=== PATIENT | male | born 1930 | race Two or more races ===

== ENCOUNTER 2018-03-11 06:50 | Observation (INO) | payer MEDICARE, OTHER ==
[~2018-03-11] VITALS: Ht 167.6 cm; Wt 66.1 kg
[2018-03-11] VITALS (14 sets, daily range): BP systolic 128–140; BP diastolic 59–80
[2018-03-11] MEDS ORDERED: TAMSULOSIN HCL0.4 MG ORAL (06:54)
[2018-03-11] MEDS ORDERED: ARTIFICIAL TEAR15 ML BOTH EYES (06:54)
[2018-03-11] MEDS ORDERED: PROVASTATIN PO (06:54)
[2018-03-11] MEDS ORDERED: ECOTRIN81 MG PO (06:54)
[2018-03-11] MEDS ORDERED: JENTADUETO 2.51 EACH PO (06:54)
[2018-03-11] MEDS ORDERED: VOLTAREN GEL TOPIC (06:54)
[2018-03-11] MEDS ORDERED: Propofol 1,000mg/ 100ml btl IV ONE (07:00)
[2018-03-11] MEDS ORDERED: ceFAZolin sod 2 GM in NS 55 ML IVPB ONE (07:00)
[2018-03-11] MEDS ORDERED: LR 1000ml 1,000 ML IVLG SCH (07:07)
--- NOTE | 2018-03-11 07:08 | Pre-Procedure Note/Attestation ---
Pre-Procedure Note/Attestation Complete Prior to Procedure Planned Procedure: right Procedure Narrative: laparoscopic right inguinal hernia repair with mesh Indications for Procedure Pre-Operative Diagnosis: recurrent right inguinal hernia Attestation I attest that I discussed the nature of the procedure; its benefits; risks and complications; and alternatives (and the risks and benefits of such alternatives ), prior to the procedure, with the patient (or the patient's legal development representative). I attest that, if there was a reasonable possibility of needing a blood transfusion, the patient (or the patient's legal development representative) was given the [facility] standardized written summary, pursuant to the Neymar Kinsey Blood Safety Act ([place] Health and Safety Code # 1645, as amended). I attest that I re-evaluated the patient just prior to the surgery and that there has been no change in the patient's H&P, except as documented below: Dioni Paulson Mar 11, 2018 07:08
[2018-03-11] MEDS ORDERED: DiphenhydrAMINE 50mg/ml Inj IVP PRN ×2 (07:15→10:30)
[2018-03-11] MEDS ORDERED: Norco 5mg/325mg tab ORAL PRN (07:15)
[2018-03-11] MEDS ORDERED: Metoclopramide 10mg/2ml Inj IVP PRN (07:15)
[2018-03-11] MEDS ORDERED: Acetaminophen (Non formulary) 100 ML IV ONE (07:15)
[2018-03-11] MEDS ORDERED: oxyCODONE HCL/Acetaminophen 5/325mg ORAL PRN (07:15)
[2018-03-11] MEDS ORDERED: Hydromorphone 0.5mg/0.5ml inj IVP PRN (07:15)
[2018-03-11] MEDS ORDERED: fentaNYL 100 mcg/2 mL IV PRN (07:15)
[2018-03-11] MEDS ORDERED: LORazepam Inj 2mg/ml 1ml IV PRN (07:15)
[2018-03-11] MEDS ORDERED: HYDROcodone/Acetamin 7.5/325 tab ORAL PRN (07:15)
[2018-03-11] MEDS ORDERED: Ketorolac 30mg Inj IV PRN ×2 (07:15)
[2018-03-11] MEDS ORDERED: Atropine Inj 1mg/10ml Syr IV PRN (07:15)
[2018-03-11] MEDS ORDERED: Midazolam 2mg/2ml Inj IVP PRN (07:15)
[2018-03-11] MEDS ORDERED: Labetalol 5mg/ml 20ml vial IV PRN (07:15)
[2018-03-11] MEDS ORDERED: METFORMIN HCL500 M1 ORAL (07:21)
[2018-03-11] MEDS ORDERED: VITAMIN D250000 UNI1 ORAL (07:21)
[2018-03-11] MEDS ORDERED: Dexamethasone 4mg/ml vial ONE (07:28)
[2018-03-11] MEDS ORDERED: Sodium Chloride 10ml vial INJ ONE (07:28)
[2018-03-11] MEDS ORDERED: Lidocaine 1% MPF 10mg/ml 5ml ONE (07:28)
[2018-03-11] MEDS ORDERED: Midazolam 2mg/2ml Inj ONE (07:29)
[2018-03-11] MEDS ORDERED: Alfentanil 2ml Inj ONE (07:29)
[2018-03-11] MEDS ORDERED: NS Irrig 1000ml ONE (07:30)
[2018-03-11] MEDS ORDERED: Neostigmine 1mg/ml 10ml Inj ONE (07:30)
[2018-03-11] MEDS ORDERED: LR 1000ml ONE (07:30)
[2018-03-11] MEDS ORDERED: Sterile Water Irrig 1000ml IRRIG ONE (07:30)
[2018-03-11] MEDS ORDERED: Bacitracin 50000 Units Vial ONE (07:33)
[2018-03-11] MEDS ORDERED: NeoSporin Gu Irrig 1ml Amp IRRIG ONE (07:33)
[2018-03-11] MEDS ORDERED: EPINEPHrine 1mg/1ml Amp ONE (07:33)
[2018-03-11] MEDS ORDERED: Bupivacaine 0.5% Inj 30 ml vial INJ ONE (07:33)
[2018-03-11] MEDS ORDERED: PRAVASTATIN SOD10 M1 ORAL (07:34)
--- NOTE | 2018-03-11 08:15 | Anethesia Preoperative Eval ---
Anesthesia Pre-op PMH/ROS General Date of Evaluation: Mar 11, 2018 Time of Evaluation: 07:26 Anesthesiologist: Kristen ASA Score: ASA 3 Mallampati Score Class I : Soft palate, uvula, fauces, pillars visible Class II: Soft palate, uvula, fauces visible Class III: Soft palate, base of uvula visible Class IV: Only hard plate visible Mallampati Classification: Class II Surgeon: Lorene Diagnosis: R Inguinal Hernia Surgical Procedure: Laparoscopic R Inguinal Hernia Repair Anesthesia History: none Family History: no anesthesia problems Allergies: Coded Allergies: No Known Allergies (Verified , 03/11/18) Medications: see eMAR Past Medical History Cardiovascular: Reports: HTN, other - HL Gastrointestinal/Genitourinary: Reports: other - BPH Endocrine: Reports: DM PSxH Narrative: Open Inguinal Hernia Repair X2 Anesthesia Pre-op Phys. Exam Physician Exam Last Vital Signs Date Time Temp Pulse Resp B/P (MAP) Pulse Ox O2 Delivery O2 Flow Rate FiO2 03/11/18 07:27 97.7 68 20 137/70 (92) 98 97.7 03/11/18 07:15 Room Air Constitutional: NAD Neurologic: CN 2-12 intact Cardiovascular: RRR Respiratory: CTA Gastrointestinal: S/NT/ND Airway Exam Mallampati Score: Class II MO: full ROM: limited Teeth: missing, intact Anesthesia Pre-op A/P Risk Assessment & Plan Assessment: ASA 3 Plan: GA, BIS, GlideScope Status Change Before Surgery: No Pre-Antibiotics Dru Gram Ancef IV Given Within 1 Hr of Incision: Yes Time Given: 07:46 Per Peterson MD Mar 11, 2018 08:15
--- NOTE | 2018-03-11 08:16 | Immediate Post-Op Evaluation ---
Immediate Post-Op Evalulation Immediate Post-Op Evalulation Procedure: Laparoscopic R Inguinal Hernia Repair Date of Evaluation: Mar 11, 2018 Time of Evaluation: 10:23 IV Fluids: 500 LR Blood Products: 0 Estimated Blood Loss: 12 Urinary Output: 0 Blood Pressure Systolic: 131 Blood Pressure Diastolic: 64 Pulse Rate: 71 Respiratory Rate: 16 O2 Sat by Pulse Oximetry: 100 Temperature (Fahrenheit): 98.6 Pain Score (1-10): 2 Nausea: No Vomiting: No Complications 0 Patient Status: awake, reacts, patent, extubated, none Hydration Status: adequate Dru Gram Ancef IV Given Within 1 Hr of Incision: Yes Time Given: 07:46 Per Peterson MD Mar 11, 2018 08:16
[2018-03-11] MEDS ORDERED: Thrombin 5000 units spray kit TOPIC ONE (09:35)
[2018-03-11] MEDS ORDERED: Gelfoam Absorbable 1gm powder pkt TOPIC ONE (09:35)
--- NOTE | 2018-03-11 10:25 | Brief Operative Note ---
Immediate Post Operative Note Operative Note Pre-op Diagnosis: recurrent right inguinal hernia Procedure: laparoscopic right inguinal hernia repair with mesh Post-op Diagnosis: recurrent right direct inguinal hernia Surgeon: drew Anesthesiologist: julius Anesthesia: general Specimen: none Complications: none Condition: stable Fluids: see records Estimated Blood Loss: minimal Drains: none Implant(s) used?: Yes - Bard 3D mesh Dioni Paulson Mar 11, 2018 10:25
[2018-03-11] MEDS ORDERED: Sennosides 8.6mg ORAL PRN (10:30)
[2018-03-11] MEDS ORDERED: Milk of Magnesia 30ml Ud ORAL PRN (10:30)
[2018-03-11] MEDS ORDERED: Morphine Sulfate 2mg/ml Inj IVP PRN ×2 (12:00)
[2018-03-11] MEDS ORDERED: Morphine Sulfate 4mg/ml Inj (IV/IM USE ONLY) IVP PRN (12:00)
[2018-03-11] MEDS ORDERED: D5 1/2NS w/KCl 20mEq 1,000 ML IV SCH (13:00)
[2018-03-11] MEDS ORDERED: Artificial Tears 1.4% Op Soln BOTH EYES PRN (13:30)
--- NOTE | 2018-03-11 14:06 | General Progress Note ---
Assessment/Plan Status: stable Assessment/Plan 1. Right inguinal s/p RT inguinal hernia repair with mesh - doing well. advised to walk and DC planning tomorrow. good pain control. 2. DM II - cont home meds. 3. BPH - cont flomax 0.8 mg qhs. 4. HLD - Cont pravachol 10 mg qhs. Subjective Date patient seen: Mar 11, 2018 Time patient seen: 13:40 Constitutional: Reports: no symptoms HEENT: Reports: no symptoms Cardiovascular: Reports: no symptoms Respiratory: Reports: no symptoms Gastrointestinal/Abdominal: Reports: no symptoms Genitourinary: Reports: no symptoms Neurologic/Psychiatric: Reports: no symptoms Endocrine: Reports: no symptoms Hematologic/Lymphatic: Reports: no symptoms Allergies: Coded Allergies: No Known Allergies (Verified , 03/11/18) Subjective He is s/p lab hernia repair today. he is doing well. he had BM today. no sob or chest pain. no fever or chills. Objective Last 24 Hour Vital Signs Date Time Temp Pulse Resp B/P (MAP) Pulse Ox O2 Delivery O2 Flow Rate FiO2 03/11/18 13:15 Nasal Cannula 3.0 03/11/18 13:00 97.4 60 18 135/65 (88) 99 97.4 03/11/18 12:00 97.4 61 18 140/66 (90) 99 97.4 03/11/18 11:18 98.0 03/11/18 11:18 98.0 03/11/18 11:16 98 65 15 138/65 100 Nasal Cannula 3 98.0 03/11/18 11:05 63 14 134/70 100 Nasal Cannula 3 03/11/18 10:58 98.5 03/11/18 10:55 62 18 139/64 100 Nasal Cannula 3 03/11/18 10:52 98.5 03/11/18 10:48 65 16 131/66 99 Nasal Cannula 3 03/11/18 10:40 66 17 128/67 99 Nasal Cannula 3 03/11/18 10:30 68 20 134/64 99 Nasal Cannula 3 03/11/18 10:20 68 17 136/61 100 Simple Mask 6 03/11/18 10:15 69 16 133/59 100 Simple Mask 6 03/11/18 10:13 209.5 71 16 100 03/11/18 10:12 98.5 71 18 131/64 100 Simple Mask 6 98.5 03/11/18 07:27 97.7 68 20 137/70 (92) 98 97.7 03/11/18 07:15 Room Air Height (Feet): 5 Height (Inches): 6.00 Weight (Pounds): 148 General Appearance: no apparent distress, alert EENT: normal ENT inspection Neck: non-tender, normal alignment, supple Cardiovascular: normal peripheral pulses, normal rate, regular rhythm Respiratory/Chest: chest wall non-tender, lungs clear, normal breath sounds Abdomen: normal bowel sounds, non tender, soft Extremities: normal range of motion, non-tender Edema: no edema noted Arm (L), no edema noted Arm (R), no edema noted Leg (L), no edema noted Leg (R), no edema noted Pedal (L), no edema noted Pedal (R), no edema noted Generalized Neurologic: alert, oriented x 3, responsive Skin: warm/dry Lymphatic: normal anterior cervical (L), normal anterior cervical (R), normal posterior cervical (L), normal posterior cervical (R), normal submandibular (L) , normal submandibular (R), normal supraclavicular (L), normal supraclavicular ( R), normal axillary (L), normal axillary (R), normal inguinal (L), normal inguinal (R), normal other Kan Linda MD Mar 11, 2018 14:06
[2018-03-11] MEDS: ceFAZolin sod 2 GM in D5W 110 ML IV SCH ×2 (15:29→23:47)
[2018-03-11] MEDS: metFORMIN 500mg tab ORAL SCH (17:25)
[2018-03-11] MEDS: Docusate 100mg cap ORAL SCH (17:25)
--- NOTE | 2018-03-11 20:02 | Operative Note - Dictated ---
DATE OF OPERATION: 03/11/2018 PREOPERATIVE DIAGNOSIS: Recurrent right inguinal hernia. POSTOP DIAGNOSIS: Recurrent right direct inguinal hernia. OPERATION PERFORMED: Laparoscopic right inguinal hernia repair with mesh. SURGEON: Dioni Paulson M.D. MEDICAL LEADER: None. ANESTHESIOLOGIST: Per Peterson M.D. ANESTHESIA: General DEBURRER MACHINE. ESTIMATED BLOOD LOSS: Minimal. IV FLUIDS: Please see anesthesia records. COMPLICATIONS: None. SPECIMENS: None. IMPLANTS: Bard 3D mesh, right-sided, medium. COUNTS: Sponge and needle count correct x2. WOUND CLASSIFICATION: Class 1. INDICATIONS FOR PROCEDURE: This is an 87-year-old male, who was referred to me for evaluation of recurrent right inguinal hernia. The patient was seen by his primary care physician recently complaining of significant severe right groin pain, at which time, was identified in the PCP's office, to have an incarcerated inguinal hernia, which was fortunately reduced. The patient was then referred to surgery for evaluation at which time, the patient was seen by myself and noted to have a reducible right inguinal hernia with complaints of pain, discomfort, and occasional intermittent incarceration requiring reduction. The patient has had two prior right inguinal herniorrhaphies in the past, first one complicated by recurrence and second one complicated by recurrence and intermittent pain since operation. Given these above findings, repair was indicated and recommended. Discussion was held about method of repair and given two prior open surgeries with prosthetic mesh, a laparoscopic repair was recommended. Risks, benefits, and alternatives were discussed with the patient in detail. The patient expressed understanding and consented to surgery. Of note, since last the patient was seen in my office, he called complaining of worsening right groin pain and recent re-incarceration requiring reduction. Given this, the patient requested earliest possible repair time, which was scheduled for 03/11/2018. OPERATIVE NOTE: The patient was taken to the operating room and placed on the operating table in supine position with bilateral arms out. All bony prominences were well padded. Preoperative time-out was taken in identifying the patient, procedure, operative staff, and surgical staff. SCDs were placed. No Castillo catheter was inserted given the patient voided prior to entering the operating room. A 2 g Ancef IV were given one hour prior to cut time. General anesthesia was induced and the patient was intubated. The abdomen and bilateral groins were clipped, prepped, and draped in standard surgical fashion. A supraumbilical incision was made after local anesthetic was infiltrated in the proposed skin incision site. Skin incision was made with a fresh #11 scalpel. The subcutaneous tissue was dissected bluntly until the fascia was identified at the umbilical stalk. The fascia was grasped and elevated and the fascia was incised. Entry into the abdomen was obtained using the open Simba technique without complication. A 12 mm Simba trocar was inserted and the abdomen was insufflated to 12 to 15 mmHg. The patient tolerated the insufflation well. Laparoscope was inserted and the abdomen was inspected. No abnormalities were noted in the right upper quadrant. No abnormalities were noted in the left upper quadrant. There was a very small direct left inguinal hernia, which was asymptomatic and not present on examination with no prior history or complaints. There was a small remnant of a right direct inguinal hernia noted and a moderate-sized right indirect inguinal hernia, likely incisional noted with contents that were easily reduced. At this time, decision was made to proceed with right inguinal herniorrhaphy with mesh. The anterior superior iliac spine and the median umbilical ligament were identified and the remainder of the anatomy was noted. An incision was made in the peritoneal lining and a flap was created. Around the area of the prior hernia sac, there was some scar tissue, but safe dissection was performed until both lateral and medial flaps were created to pass. The medial dissection was carried down to Gurjit's ligament and the pubic tubercle exposing femoral direct and indirect spaces and laterally to about the level of the anterior superior iliac spine without going any further. The cord and cord structures were circumferentially dissected out and protected. At this time, adequate dissection was identified with reduction of the direct hernia sac, the reduction of the small indirect hernia sac, and exposure of the femoral space. At this time, a Bard 3D mesh, right-sided medium-sized mesh was inserted into the operative field and positioned appropriately. Good coverage of all hernia defect sites were noted. The mesh was tacked using a AbsorbaTack at the Gurjit's ligament and medial to the epigastric vessels. A Tisseel fibrin glue sealant was placed and the peritoneal flap was reapproximated. A few AbsorbaTack's were placed to reapproximate the peritoneal lining. Once this was complete, a satisfactory repair was identified without complication. At this time, the secondary trocars were removed under direct visualization followed by removal of the umbilical trocar and desufflation of the abdomen. The umbilical trocar site fascia was closed using a looped [id number] Vicryl suture. The remaining skin incisions were closed using 4-0 Monocryl subcuticular interrupted sutures. Dermabond and Steri-Strips were placed. At the end of the procedure, both testicles were noted to be within the scrotal sac without complication. The patient tolerated the procedure well, was extubated, and taken to the postanesthetic care unit in stable condition. Dioni Paulson M.D. DR: UCHE JOB#: [id number] CC:
[2018-03-11] MEDS ORDERED: Tamsulosin 0.4mg cap ORAL SCH (21:00)
[2018-03-12] VITALS: BP 108/59
--- NOTE | 2018-03-12 00:01 | History and Physical Report ---
DATE OF ADMISSION: 03/11/2018 CHIEF COMPLAINT: Right inguinal hernia, status post right inguinal hernia repair with mesh. HISTORY OF PRESENT ILLNESS: This is an 87-year-old male with right inguinal hernia, status post laparoscopic right hernia repair with mesh. The patient is doing fine following the surgery without any complication. PAST MEDICAL HISTORY: Includes history of osteoarthritis of the knee, chronic low back pain, diabetes, anxiety and depression, BPH, diabetic retinopathy, and right inguinal hernia. PAST SURGICAL HISTORY: History of bilateral hernia repair and bilateral cataract surgery. ALLERGIES: No known drug allergies. MEDICATIONS: The patient was on aspirin 81 mg daily, Flomax 0.4 two tablets p.o. nightly, Jentadueto 2.5/500 one b.i.d., pravastatin 10 mg nightly, and Voltaren Gel 1% applied t.i.d. p.r.n. FAMILY HISTORY: Unremarkable. SOCIAL HISTORY: No smoking. No alcohol. No IV drug use. REVIEW OF SYSTEMS: Negative except per HPI. PHYSICAL EXAMINATION: GENERAL: Appears stated age, in no acute distress. VITAL SIGNS: Temperature 97.4 degrees, pulse 60, respiration 18, blood pressure 135/65, and pulse oximetry 99% on room air. HEENT: Normocephalic and normochromic. Extraocular muscles intact. Throat is clear. LUNGS: Clear to auscultation bilaterally. CARDIOVASCULAR: Regular rate and rhythm. No murmur. No gallop. Normal S1 and S2. ABDOMEN: Soft, nontender, and nondistended. Positive bowel sounds. EXTREMITIES: No edema, cyanosis, or clubbing. GENITOURINARY: Status post right inguinal hernia repair. ASSESSMENT AND PLAN: 1. Right inguinal hernia, status post right inguinal repair with mesh, stable. 2. Diabetes mellitus type 2. We will continue home medications. 3. Hyperlipidemia. We will continue pravastatin 10 mg nightly from home. 4. BPH. We will continue Flomax 0.4 mg two nightly. We will most likely discharge the patient tomorrow following ambulation and surgical clearance. Kan Linda M.D. DR: ELIZABETH JOB#: [id number] CC: MONTRELL
[2018-03-12 04:00] VITALS: BP 109/57
--- NOTE | 2018-03-12 06:39 | 48 Hour Post Anesthesia Eval ---
Post Anesthesia Evaluation Procedure: Laparoscopic R Inguinal Hernia Repair Date of Evaluation: Mar 12, 2018 Time of Evaluation: 06:35 Blood Pressure Systolic: 109 0: 57 Pulse Rate: 68 Respiratory Rate: 19 Temperature (Fahrenheit): 98.2 O2 Sat by Pulse Oximetry: 94 Airway: patent Nausea: No Vomiting: No Pain Intensity: 0 Hydration Status: adequate Cardiopulmonary Status: at baseline Mental Status/LOC: patient returned to baseline Post-Anesthesia Complications: 0 Follow-up care needed: N/A - further care as per primary team Hanna Lowe MD Mar 12, 2018 06:39
[2018-03-12 06:59] LABS: HEMATOCRIT 37.1 % (42.0-52.0); HEMOGLOBIN 13.1 G/DL (14.2-18.0); MEAN CORPUSCULAR VOLUME 89 FL (80-99); PLATELET COUNT 84 K/UL (150-450); RED BLOOD COUNT 4.16 M/UL (4.70-6.10); RED CELL DISTRIBUTION WIDTH 11.3 % (11.6-14.8); WHITE BLOOD COUNT 6.1 K/UL (4.8-10.8)
[2018-03-12 07:06] LABS: ANION GAP 6 mmol/L (5-15); BLOOD UREA NITROGEN 17 mg/dL (7-18); CALCIUM 8.5 MG/DL (8.5-10.1); CARBON DIOXIDE 28 MMOL/L (21-32); CHLORIDE 108 MMOL/L (98-107); CREATININE 0.9 MG/DL (0.55-1.30); SODIUM 141 MMOL/L (136-145)
[2018-03-12 08:00] VITALS: BP 99/56
[2018-03-12] MEDS: Docusate 100mg cap ORAL SCH (08:29)
[2018-03-12] MEDS: metFORMIN 500mg tab ORAL SCH (08:29)
--- NOTE | 2018-03-12 08:42 | General Progress Note ---
Assessment/Plan Status: stable Assessment/Plan 1. Right inguinal hernia s/p RT inguinal hernia repair with mesh - doing well. able to ambulate. D/C today from medical stand point. 2. DM II - cont home meds. 3. BPH - cont flomax 0.8 mg qhs. 4. HLD - Cont pravachol 10 mg qhs. Subjective Date patient seen: Mar 12, 2018 Time patient seen: 08:30 Constitutional: Reports: no symptoms HEENT: Reports: no symptoms Cardiovascular: Reports: no symptoms Respiratory: Reports: no symptoms Gastrointestinal/Abdominal: Reports: no symptoms Genitourinary: Reports: no symptoms Neurologic/Psychiatric: Reports: no symptoms Endocrine: Reports: no symptoms Hematologic/Lymphatic: Reports: no symptoms Allergies: Coded Allergies: No Known Allergies (Verified , 03/11/18) Subjective He is s/p lab hernia repair today. he is doing well and able to ambulate well. no sob or chest pain. no fever or chills. Objective Last 24 Hour Vital Signs Date Time Temp Pulse Resp B/P (MAP) Pulse Ox O2 Delivery O2 Flow Rate FiO2 03/12/18 06:39 208.8 68 19 94 03/12/18 04:00 98.2 68 19 109/57 (74) 94 98.2 03/12/18 00:00 98.3 66 18 108/59 (75) 94 98.3 03/11/18 21:00 Room Air 03/11/18 20:00 97.8 64 19 131/65 (87) 99 97.8 03/11/18 16:00 97.4 60 17 131/80 (97) 98 97.4 03/11/18 13:15 Nasal Cannula 3.0 03/11/18 13:00 97.4 60 18 135/65 (88) 99 97.4 03/11/18 12:00 97.4 61 18 140/66 (90) 99 97.4 03/11/18 11:18 98.0 03/11/18 11:18 98.0 03/11/18 11:16 98 65 15 138/65 100 Nasal Cannula 3 98.0 03/11/18 11:05 63 14 134/70 100 Nasal Cannula 3 03/11/18 10:58 98.5 03/11/18 10:55 62 18 139/64 100 Nasal Cannula 3 03/11/18 10:52 98.5 03/11/18 10:48 65 16 131/66 99 Nasal Cannula 3 03/11/18 10:40 66 17 128/67 99 Nasal Cannula 3 03/11/18 10:30 68 20 134/64 99 Nasal Cannula 3 03/11/18 10:20 68 17 136/61 100 Simple Mask 6 03/11/18 10:15 69 16 133/59 100 Simple Mask 6 03/11/18 10:13 209.5 71 16 100 03/11/18 10:12 98.5 71 18 131/64 100 Simple Mask 6 98.5 Intake and Output 03/11/18 03/12/18 19:00 07:00 Intake Total 1500 ml 430 ml Output Total 10 ml Balance 1490 ml 430 ml Intake Oral 500 ml 320 ml IV Total 1000 ml 110 ml Output Estimated Blood Loss 10 ml # Voids 6 3 Laboratory Tests 03/12/18 06:00: White Blood Count 6.1, Red Blood Count 4.16L, Hemoglobin 13.1L, Hematocrit 37.1L , Mean Corpuscular Volume 89, Mean Corpuscular Hemoglobin 31.4H, Mean Corpuscular Hemoglobin Concent 35.2, Red Cell Distribution Width 11.3L, Platelet Count 84L, Mean Platelet Volume 8.2, Neutrophils (%) (Auto) , Lymphocytes (%) (Auto) , Monocytes (%) (Auto) , Eosinophils (%) (Auto) , Basophils (%) (Auto) , Neutrophils % (Manual) [Pending], Lymphocytes % (Manual) [Pending], Platelet Estimate [Pending], Platelet Morphology [Pending], Sodium Level 141, Potassium Level 4.0, Chloride Level 108H, Carbon Dioxide Level 28, Anion Gap 6, Blood Urea Nitrogen 17, Creatinine 0.9, Estimat Glomerular Filtration Rate , Glucose Level 138H, Calcium Level 8.5, Phosphorus Level 3.0, Magnesium Level 1.9 Height (Feet): 5 Height (Inches): 6.00 Weight (Pounds): 145 General Appearance: no apparent distress, alert Neck: non-tender, supple Cardiovascular: normal peripheral pulses, normal rate, regular rhythm Respiratory/Chest: chest wall non-tender, lungs clear, normal breath sounds Abdomen: normal bowel sounds, non tender, soft Extremities: normal range of motion, non-tender Edema: no edema noted Arm (L), no edema noted Arm (R), no edema noted Leg (L), no edema noted Leg (R), no edema noted Pedal (L), no edema noted Pedal (R), no edema noted Generalized Neurologic: alert, oriented x 3, responsive Skin: warm/dry Lymphatic: normal anterior cervical (L), normal anterior cervical (R), normal posterior cervical (L), normal posterior cervical (R), normal submandibular (L) , normal submandibular (R), normal supraclavicular (L), normal supraclavicular ( R), normal axillary (L), normal axillary (R), normal inguinal (L), normal inguinal (R), normal other Kan Linda MD Mar 12, 2018 08:42
[2018-03-12 12:00] VITALS: BP 103/57
[2018-03-12 16:00] VITALS: BP 105/59
--- NOTE | 2018-03-16 07:45 | Discharge Summary ---
DATE OF ADMISSION: 03/11/2018 DATE OF DISCHARGE: 03/12/2018 CHIEF COMPLAINT: Admission for hernia repair. HOSPITAL COURSE: This is an 87-year-old [place] male, who was brought in for right inguinal hernia repair laparoscopically. The patient was admitted for observation after surgery overnight. The patient tolerated the surgery well and was able to ambulate following the surgery with well controlled pain management. No complication was seen following the surgery. DISCHARGE DIAGNOSES: Include: 1. Right inguinal hernia and status post right inguinal hernia repair with mesh. 2. History of diabetes mellitus type 2. 3. Hyperlipidemia. 4. Benign prostatic hypertrophy. DISCHARGE MEDICATIONS: The patient will be discharged back to home with his previous home medications. DISPOSITION: The patient will be sent home and I will follow the patient within one week. Kan Linda M.D. DR: EDDIE JOB#: [id number] CC:
== END 2018-03-12 17:11 | disposition home or self-care (01) ==
LOC: SUR 06:50 → 3E 11:07 → UNDODISOB 03-12 17:11
DX: K40.91 Unilateral inguinal hernia, without obstruction or gangrene, recurrent (principal); G89.29 Other chronic pain; M54.5 Low back pain; F41.8 Other specified anxiety disorders; E11.319 Type 2 diabetes mellitus with unspecified diabetic retinopathy without macular edema; E78.5 Hyperlipidemia, unspecified; N40.0 Benign prostatic hyperplasia without lower urinary tract symptoms; R32 Unspecified urinary incontinence; M17.0 Bilateral primary osteoarthritis of knee
CPT/HCPCS: 36415; 49651; 80048; 82962; 83735; 84100; 85007; 85025; 96360; 96361; 96365; 96374; 97110; 97116 ×2; 97161; 97165; 97530 ×3; 97535; C1781; G0378 ×2; J0171; J0690; J1100; J1170; J1200; J1885; J2250; J2270; J2405; J2704; J2710; J3490 ×2; 94003; 94150